=== PATIENT | female | born 1955 | race Caucasian/White ===

== ENCOUNTER 2016-07-18 09:46 | Outpatient (CLI) | payer OTHER ==
--- NOTE | 2016-07-24 10:22 | DIAGNOSTIC IMAGING REPORT ---
PROCEDURE: MG BILATERAL SCREENING W/CAD INDICATION: SCREENING. Personal history of right breast cancer 2012. TECHNIQUE: Bilateral CC and MLO digital views. COMPARISON: Mammogram 06/13/2015 and Merged With [facility] mammograms 05/24/2014 and 05/11/2013 . FINDINGS: Computer-aided detection applied. Moderately dense. Right axillary surgical changes without significant change. No suspicious microcalcifications. IMPRESSION: 1. Negative mammogram with the right axillary tail surgical changes RESULT CODE: 2- Benign finding(s). A. A negative report should not delay biopsy if a dominant or clinically suspicious mass is present. 10-15% of cancers are not identified by x-ray. B. A negative report may reinforce clinical impression. C. Adenosis and dense breasts may obscure an underlying neoplasm. D. False positive reports average 6-10%. E.. A yearly screening mammogram is recommended. A reminder letter will be scheduled.
== END 2016-07-18 23:00 ==
LOC: MAM SRH 09:46
DX: Z12.31 Encounter for screening mammogram for malignant neoplasm of breast (principal); Z85.3 Personal history of malignant neoplasm of breast